=== PATIENT | male | born 1965 | race Caucasian/White ===

== ENCOUNTER 2025-02-07 14:28 | Inpatient (IN) | payer OTHER ==
[~2025-02-07] VITALS: Ht 182.9 cm; Wt 80.4 kg
[2025-02-07] VITALS (27 sets, daily range): BP systolic 151–178; BP diastolic 88–102
[~2025-02-07 14:28] MED LIST: JARDIANCE10 MG; NEURONTIN300 MG PO; ULTRAM50 MG PO
[2025-02-07 14:59] LABS: BASO% 1.6 % (0-3); EOS% 2.3 % (0-8); HEMATOCRIT 42.3 % (39.0-50.0); HEMOGLOBIN 14.5 g/dl (14.0-18.0); IMMATURE GRANULOCYTES 0.2 % (0.0-5.0); LYMPH% 20.8 % (15-41); MEAN CELL VOLUME 99.3 fL CALC (80.0-100.0); MEAN CORPUSCULAR HGB CONC 34.3 g/dL CAL (32.0-36.0); MONO% 13.9 % (2-13); NEUT# 2.68 thou/uL (1.82-7.42); NEUT% 61.2 % (42-76); RED BLOOD COUNT 4.26 mill/uL (4.70-6.10); RED CELL DISTRI WIDTH 11.4 % (11.5-15.5)
[2025-02-07] MEDS ORDERED: TENECTEPLASE 50 MG/KIT IV ONE ×2 (15:05→15:20)
[2025-02-07 15:10] LABS: ALBUMIN 4.7 g/dL (3.2-5.0); ALKALINE PHOSPHATASE 62 u/l (38-126); ANION GAP 19 (6-22 (CALC)); BILIRUBIN, TOTAL 2.2 mg/dL (0.2-1.3); BUN 13 mg/dL (9-20); BUN/CREATININE RATIO 16 (12-20 (CALC)); CALCULATED LDLCHOLESTEROL 157 mg/dL (62-129 (CALC)); CARBON DIOXIDE 29 mmol/l (22-30); CHLORIDE 93 mmol/l (95-108); CHOLESTEROL HDL RATIO 3.6 (<4.4 (CALC)); CREATININE 0.8 mg/dL (0.7-1.3); ESTIMATED GFR 102 ML/MIN (>=90 (CALC)); HDL CHOLESTEROL 68 mg/dL (39.0-59.0); POTASSIUM 4.1 mmol/l (3.5-5.1); SGOT/AST 123 u/l (17-59); SODIUM 137 mmol/l (137-146); TOTAL CHOLESTEROL 249 mg/dl (0-199); TOTAL PROTEIN 7.9 g/dL (6.3-8.2); TOTAL TRIGLYCERIDES 117 mg/dl (0-149); VLDL CHOLESTROL 23 mg/dl (8-62 (CALC))
[2025-02-07] MEDS ORDERED: SODIUM CHLORIDE 0.9% 10 ML SYR IV PRN (16:10)
[2025-02-07] MEDS ORDERED: DEXTROSE 250 ML IV PRN (16:10)
[2025-02-07] MEDS ORDERED: INSULIN LISPRO 100 UNITS/ML ML SC SCH (17:00)
[2025-02-07] MEDS ORDERED: ATORVASTATIN CALCIUM 40 MG/TAB PO SCH (21:00)
[2025-02-07] MEDS ORDERED: SODIUM CHLORIDE 0.9% 10 ML SYR IV SCH (22:00)
[2025-02-08] VITALS (50 sets, daily range): BP systolic 127–178; BP diastolic 80–103
[2025-02-08] MEDS ORDERED: LABETALOL HCL 20 MG/ 4 ML CARTRG IV PRN (08:00)
[2025-02-08] MEDS ORDERED: PANTOPRAZOLE SODIUM Sesquihydr 40 MG/TAB PO SCH (09:00)
[2025-02-08 09:28] LABS: BASO% 1.1 % (0-3); EOS% 1.8 % (0-8); HEMATOCRIT 45.5 % (39.0-50.0); HEMOGLOBIN 15.6 g/dl (14.0-18.0); IMMATURE GRANULOCYTES 0.2 % (0.0-5.0); MEAN CELL VOLUME 97.8 fL CALC (80.0-100.0); MEAN CORPUSCULAR HGB 33.5 pG CALC (26.0-32.0); MEAN CORPUSCULAR HGB CONC 34.3 g/dL CAL (32.0-36.0); MONO% 10.5 % (2-13); NEUT# 3.13 thou/uL (1.82-7.42); NEUT% 71.4 % (42-76); RED BLOOD COUNT 4.65 mill/uL (4.70-6.10); RED CELL DISTRI WIDTH 11.4 % (11.5-15.5)
[2025-02-08 09:42] LABS: CREATININE 0.6 mg/dL (0.7-1.3); POTASSIUM 3.7 mmol/l (3.5-5.1)
[2025-02-08] MEDS ORDERED: MORPHINE SULFATE 4 MG/ML VIAL IV PRN (15:20)
[2025-02-09] VITALS (24 sets, daily range): BP systolic 100–150; BP diastolic 72–96
[2025-02-09 05:14] LABS: HEMOGLOBIN 14.9 g/dl (14.0-18.0); MEAN CELL VOLUME 101.4 fL CALC (80.0-100.0); MEAN CORPUSCULAR HGB 34.3 pG CALC (26.0-32.0); MEAN CORPUSCULAR HGB CONC 33.9 g/dL CAL (32.0-36.0); RED BLOOD COUNT 4.34 mill/uL (4.70-6.10); RED CELL DISTRI WIDTH 11.4 % (11.5-15.5)
[2025-02-09 05:32] LABS: ALBUMIN 4.2 g/dL (3.2-5.0); BILIRUBIN, TOTAL 2.2 mg/dL (0.2-1.3); CREATININE 0.6 mg/dL (0.7-1.3); MAGNESIUM 1.4 mg/dL (1.6-2.3); POTASSIUM 3.4 mmol/l (3.5-5.1); TOTAL PROTEIN 7.4 g/dL (6.3-8.2)
[2025-02-09 09:06] LABS: BASO% 1.3 % (0-3); EOS% 2.7 % (0-8); HEMATOCRIT 45.8 % (39.0-50.0); IMMATURE GRANULOCYTES 0.2 % (0.0-5.0); LYMPH% 17.8 % (15-41); MEAN CELL VOLUME 97.4 fL CALC (80.0-100.0); MEAN CORPUSCULAR HGB CONC 34.9 g/dL CAL (32.0-36.0); MONO% 13.5 % (2-13); NEUT# 4.06 thou/uL (1.82-7.42); NEUT% 64.5 % (42-76); RED BLOOD COUNT 4.7 mill/uL (4.70-6.10); RED CELL DISTRI WIDTH 11.3 % (11.5-15.5)
[2025-02-09 10:00] LABS: CREATININE 0.7 mg/dL (0.7-1.3); POTASSIUM 3.7 mmol/l (3.5-5.1)
[2025-02-09] MEDS ORDERED: CLOPIDOGREL BISULFATE 75 MG/TAB TAB PO SCH (14:30)
[2025-02-09] MEDS ORDERED: ASPIRIN EC 81 MG/TAB PO SCH (14:30)
[2025-02-09] MEDS ORDERED: GABAPENTIN 300 MG/CAP PO SCH (19:53)
[2025-02-09] MEDS ORDERED: DEXTROSE 250 ML IV PRN (19:55)
[2025-02-09] MEDS ORDERED: INSULIN GLARGINE 100 UNITS/ML SC SCH (21:00)
[2025-02-09] MEDS ORDERED: traMADol HCL 50 MG/TAB PO PRN (22:05)
[2025-02-10] VITALS (12 sets, daily range): BP systolic 117–152; BP diastolic 64–88
[2025-02-10 08:47] LABS: CREATININE 0.6 mg/dL (0.7-1.3); POTASSIUM 3.4 mmol/l (3.5-5.1)
[2025-02-10 10:12] LABS: BASO% 1.2 % (0-3); EOS% 4.1 % (0-8); HEMATOCRIT 43.6 % (39.0-50.0); HEMOGLOBIN 15.2 g/dl (14.0-18.0); IMMATURE GRANULOCYTES 0.2 % (0.0-5.0); LYMPH% 13.3 % (15-41); MEAN CELL VOLUME 96.9 fL CALC (80.0-100.0); MEAN CORPUSCULAR HGB 33.8 pG CALC (26.0-32.0); MEAN CORPUSCULAR HGB CONC 34.9 g/dL CAL (32.0-36.0); MONO% 14.6 % (2-13); NEUT# 3.75 thou/uL (1.82-7.42); NEUT% 66.6 % (42-76); RED BLOOD COUNT 4.5 mill/uL (4.70-6.10); RED CELL DISTRI WIDTH 11.3 % (11.5-15.5)
[2025-02-10] MEDS ORDERED: POTASSIUM CHLORIDE 20 MEQ/TAB PO SCH (18:30)
[2025-02-11] VITALS (9 sets, daily range): BP systolic 107–139; BP diastolic 66–88
[2025-02-11 08:32] LABS: BASO% 0.9 % (0-3); EOS% 4.5 % (0-8); HEMATOCRIT 41.9 % (39.0-50.0); HEMOGLOBIN 14.6 g/dl (14.0-18.0); IMMATURE GRANULOCYTES 0.2 % (0.0-5.0); LYMPH% 13.4 % (15-41); MEAN CELL VOLUME 97.4 fL CALC (80.0-100.0); MEAN CORPUSCULAR HGB CONC 34.8 g/dL CAL (32.0-36.0); MONO% 14.2 % (2-13); NEUT# 3.73 thou/uL (1.82-7.42); NEUT% 66.8 % (42-76); RED BLOOD COUNT 4.3 mill/uL (4.70-6.10); RED CELL DISTRI WIDTH 11.4 % (11.5-15.5)
[2025-02-11 08:36] LABS: CREATININE 0.6 mg/dL (0.7-1.3); POTASSIUM 3.3 mmol/l (3.5-5.1)
[2025-02-11] MEDS ORDERED: ATORVASTATIN CALCIUM 40 MG/TAB PO SCH (21:00)
[2025-02-12] VITALS (8 sets, daily range): BP systolic 126–138; BP diastolic 72–87
[2025-02-12 09:03] LABS: BASO% 1.4 % (0-3); EOS% 5.4 % (0-8); HEMATOCRIT 41.9 % (39.0-50.0); HEMOGLOBIN 14.7 g/dl (14.0-18.0); IMMATURE GRANULOCYTES 0.2 % (0.0-5.0); LYMPH% 17.4 % (15-41); MEAN CELL VOLUME 96.5 fL CALC (80.0-100.0); MEAN CORPUSCULAR HGB 33.9 pG CALC (26.0-32.0); MEAN CORPUSCULAR HGB CONC 35.1 g/dL CAL (32.0-36.0); MONO% 13.8 % (2-13); NEUT# 2.99 thou/uL (1.82-7.42); NEUT% 61.8 % (42-76); RED BLOOD COUNT 4.34 mill/uL (4.70-6.10); RED CELL DISTRI WIDTH 11.1 % (11.5-15.5)
[2025-02-12 09:14] LABS: CREATININE 0.6 mg/dL (0.7-1.3); POTASSIUM 3.4 mmol/l (3.5-5.1)
[2025-02-12] MEDS ORDERED: POTASSIUM CHLORIDE 20 MEQ/TAB PO ONE (20:25)
[2025-02-13] VITALS (7 sets, daily range): BP systolic 131–149; BP diastolic 77–92
[2025-02-13] MEDS ORDERED: ACETAMINOPHEN 325 MG/TAB PO SCH (04:40)
[2025-02-13 09:05] LABS: BASO% 1.2 % (0-3); EOS% 5.3 % (0-8); HEMATOCRIT 40.7 % (39.0-50.0); HEMOGLOBIN 14.4 g/dl (14.0-18.0); IMMATURE GRANULOCYTES 0.2 % (0.0-5.0); LYMPH% 14.4 % (15-41); MEAN CELL VOLUME 96.7 fL CALC (80.0-100.0); MEAN CORPUSCULAR HGB 34.2 pG CALC (26.0-32.0); MEAN CORPUSCULAR HGB CONC 35.4 g/dL CAL (32.0-36.0); MONO% 14.2 % (2-13); NEUT# 3.29 thou/uL (1.82-7.42); NEUT% 64.7 % (42-76); RED BLOOD COUNT 4.21 mill/uL (4.70-6.10); RED CELL DISTRI WIDTH 11.3 % (11.5-15.5)
[2025-02-13 09:18] LABS: CREATININE 0.6 mg/dL (0.7-1.3); POTASSIUM 3.8 mmol/l (3.5-5.1)
[2025-02-13] MEDS ORDERED: LOSARTAN Potassium 50 MG/TAB PO SCH (10:00)
[2025-02-13 11:15] LABS: URINE BLOOD DIPSTICK Negative (NEGATIVE); URINE GLUCOSE - DIPSTICK >=1000 mg/dL (NEGATIVE); URINE KETONE 15 mg/dL (NEGATIVE); URINE LEUK ESTERASE Negative (NEGATIVE); URINE NITRITE - DIPSTICK Negative (Negative); URINE PROTEIN - DIPSTICK 100 mg/dL (NEG-TRACE); URINE SPECIFIC GRAVITY 1.015
[2025-02-13 11:16] LABS: URINE COLOR Yellow
[2025-02-13 11:24] LABS: URINE HYALINE CAST RARE lpf (NONE-RARE); URINE RBC 0-2 RBC/hpf (0-5); URINE WBC 0-2 WBC/hpf (0-5)
[2025-02-13] MEDS ORDERED: INSULIN GLARGINE 100 UNITS/ML SC SCH (21:00)
[2025-02-14] VITALS (8 sets, daily range): BP systolic 107–141; BP diastolic 67–90
[2025-02-14 04:49] LABS: BASO% 1.2 % (0-3); HEMATOCRIT 39.2 % (39.0-50.0); HEMOGLOBIN 13.8 g/dl (14.0-18.0); IMMATURE GRANULOCYTES 0.2 % (0.0-5.0); LYMPH% 13.2 % (15-41); MEAN CELL VOLUME 98.5 fL CALC (80.0-100.0); MEAN CORPUSCULAR HGB 34.7 pG CALC (26.0-32.0); MEAN CORPUSCULAR HGB CONC 35.2 g/dL CAL (32.0-36.0); MONO% 16.3 % (2-13); NEUT# 3.73 thou/uL (1.82-7.42); NEUT% 64.1 % (42-76); RED BLOOD COUNT 3.98 mill/uL (4.70-6.10); RED CELL DISTRI WIDTH 11.3 % (11.5-15.5)
[2025-02-14 05:14] LABS: ALBUMIN 3.6 g/dL (3.2-5.0); CREATININE 0.7 mg/dL (0.7-1.3); POTASSIUM 3.6 mmol/l (3.5-5.1); TOTAL PROTEIN 6.8 g/dL (6.3-8.2)
[2025-02-14 05:17] LABS: MAGNESIUM 1.9 mg/dL (1.6-2.3)
[2025-02-14 09:49] LABS: BASO% 1.4 % (0-3); EOS% 4.9 % (0-8); HEMATOCRIT 40.5 % (39.0-50.0); HEMOGLOBIN 13.9 g/dl (14.0-18.0); IMMATURE GRANULOCYTES 0.2 % (0.0-5.0); LYMPH% 15.3 % (15-41); MEAN CELL VOLUME 97.6 fL CALC (80.0-100.0); MEAN CORPUSCULAR HGB 33.5 pG CALC (26.0-32.0); MEAN CORPUSCULAR HGB CONC 34.3 g/dL CAL (32.0-36.0); MONO% 15.1 % (2-13); NEUT# 3.25 thou/uL (1.82-7.42); NEUT% 63.1 % (42-76); RED BLOOD COUNT 4.15 mill/uL (4.70-6.10); RED CELL DISTRI WIDTH 11.2 % (11.5-15.5)
[2025-02-14 10:12] LABS: CREATININE 0.6 mg/dL (0.7-1.3)
[2025-02-14] MEDS ORDERED: INSULIN GLARGINE 100 UNITS/ML SC SCH (21:00)
[2025-02-15] VITALS (7 sets, daily range): BP systolic 70–131; BP diastolic 45–84
[2025-02-15 05:37] LABS: CREATININE 0.6 mg/dL (0.7-1.3); POTASSIUM 3.7 mmol/l (3.5-5.1)
[2025-02-15 09:47] LABS: BASO% 1.1 % (0-3); EOS% 3.7 % (0-8); HEMATOCRIT 40.4 % (39.0-50.0); HEMOGLOBIN 14.1 g/dl (14.0-18.0); IMMATURE GRANULOCYTES 0.2 % (0.0-5.0); LYMPH% 14.3 % (15-41); MEAN CELL VOLUME 98.8 fL CALC (80.0-100.0); MEAN CORPUSCULAR HGB 34.5 pG CALC (26.0-32.0); MEAN CORPUSCULAR HGB CONC 34.9 g/dL CAL (32.0-36.0); MONO% 14.8 % (2-13); NEUT# 4.06 thou/uL (1.82-7.42); NEUT% 65.9 % (42-76); RED BLOOD COUNT 4.09 mill/uL (4.70-6.10); RED CELL DISTRI WIDTH 11.1 % (11.5-15.5)
[2025-02-15] MEDS ORDERED: PLAVIX75 MG PO (09:47)
[2025-02-15] MEDS ORDERED: ATORVASTATIN CA40 MG PO (09:47)
[2025-02-15] MEDS ORDERED: LOSARTAN POTASS50 MG PO (09:47)
[2025-02-15] MEDS ORDERED: ADLT ASA LOW81 MG PO (09:48)
[2025-02-15] MEDS ORDERED: PANTOPRAZOLE SO40 M1 PO (09:48)
[2025-02-15] MEDS ORDERED: TRAMADOL HYDROC50 M1 PO (09:48)
[2025-02-15] MEDS ORDERED: LANTUS100 UNIT SC (09:48)
[2025-02-15 10:02] LABS: CREATININE 0.8 mg/dL (0.7-1.3); POTASSIUM 3.8 mmol/l (3.5-5.1)
== END 2025-02-15 15:20 | DRG 62 ==
LOC: ED 14:28 → ED-I 16:00 → ED 16:11 → MS2 16:12 → ED-I 16:12 → MS2 02-10 11:00
PROVIDERS: Nurse Practitioner; Nurse Practitioner Family; ADMIT Internal Medicine; ATTEND Internal Medicine
DX: I63.81 Other cerebral infarction due to occlusion or stenosis of small artery (principal); G81.94 Hemiplegia, unspecified affecting left nondominant side; R29.810 Facial weakness; R47.81 Slurred speech; R29.707 NIHSS score 7; E11.40 Type 2 diabetes mellitus with diabetic neuropathy, unspecified; I10 Essential (primary) hypertension; E11.65 Type 2 diabetes mellitus with hyperglycemia
CPT/HCPCS: J1815; J3101; Q9967